=== PATIENT | female | born 2000 | race African-American/Black ===

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

== ENCOUNTER 2023-07-05 16:21 | Emergency (ER) | payer MEDICAID, OTHER ==
[~2023-07-05] VITALS: Ht 170.2 cm; Wt 68.2 kg
[2023-07-05 16:32] LABS: COVID AG,FIA SOURCE NASAL SWAB
[2023-07-05 17:07] LABS: INFLUENZA TYPE A NEGATIVE FOR TYPE A (NEGATIVE); INFLUENZA TYPE B NEGATIVE FOR TYPE B (NEGATIVE); SARS-COV2 (COVID) ANTIGEN,FIA Negative (Negative)
[2023-07-05 22:06] VITALS: BP 141/89; PULSE 77; RESP 16; TEMP 98.1
[2023-07-05] MEDS: IBUPROFEN 600 MG TABLET PO ONE (22:23)
[2023-07-05] MEDS: AMOXICILLIN TRIHYDRATE 250 MG CAPSULE PO ONE (22:27)
[2023-07-05] MEDS ORDERED: AMOX500C2 PO (22:28)
[2023-07-05] MEDS ORDERED: IBUP-1492 PO (22:29)
[2023-07-05] MEDS: OXYMETAZOLINE HCL 0.05% 15 ML NASAL SPRAY NASAL ONE (22:31)
== END 2023-07-05 22:45 | disposition home or self-care (01) ==
LOC: EMS 16:33
DX: J32.9 Chronic sinusitis, unspecified (principal); Z20.822 Contact with and (suspected) exposure to COVID-19
CPT/HCPCS: 71045; 87804; 99284